=== PATIENT | female | born 1950 | race Caucasian/White ===

== ENCOUNTER 2022-07-01 15:05 | Emergency (ER) | payer OTHER, MEDICARE, BC ==
[~2022-07-01] VITALS: Ht 167.6 cm; Wt 79.4 kg
[~2022-07-01 15:05] MED LIST: ADULT LOW DOSE81 MG PO; ARNUITY ELLIP100 MCG IH; LEVOTHYROXINE88 MCG PO; RESTASIS1 DROP OD; VITAMIN D1000 UNIT PO
[2022-07-01] MEDS ORDERED: METOPROLOL SUCC50 MG PO (15:25)
[2022-07-01] MEDS ORDERED: HYDROCHLOROTH12.5 MG PO (15:25)
[2022-07-01] MEDS ORDERED: LISINOPRIL20 MG PO (15:25)
[2022-07-01] MEDS ORDERED: CLINDAMYCIN PHO30 M1 (15:26)
== END 2022-07-01 17:06 | disposition home or self-care (01) ==
LOC: ED 15:05
DX: S13.9XXA Sprain of joints and ligaments of unspecified parts of neck, initial encounter (principal); V49.50XA Passenger injured in collision with unspecified motor vehicles in traffic accident, initial encounter; I10 Essential (primary) hypertension; R73.03 Prediabetes; Z91.048 Other nonmedicinal substance allergy status; Z79.899 Other long term (current) drug therapy; Z79.82 Long term (current) use of aspirin
CPT/HCPCS: 70450; 72125

== ENCOUNTER 2025-01-14 12:21 | Emergency (ER) | payer OTHER, MEDICARE, BC ==
[~2025-01-14] VITALS: Ht 167.6 cm; Wt 79.0 kg
[~2025-01-14 12:21] MED LIST changes: +CLINDAMYCIN PHO30 M1; +HYDROCHLOROTH12.5 MG PO; +LISINOPRIL20 MG PO; +METOPROLOL SUCC50 MG PO
[2025-01-14] MEDS ORDERED: LEVOTHYROXINE100 MCG PO (12:39)
[2025-01-14] MEDS ORDERED: EZETIMIBE10 MG PO (12:40)
[2025-01-14] MEDS ORDERED: DULOXETINE HCL30 MG PO (12:40)
[2025-01-14] MEDS ORDERED: CICLOPIROX120 ML TOP (12:41)
[2025-01-14] MEDS ORDERED: MONTELUKAST SOD10 MG PO (12:43)
[2025-01-14 15:30] VITALS: BP 143/68
== END 2025-01-14 15:30 | disposition home or self-care (01) ==
LOC: ED 12:21
DX: M25.562 Pain in left knee (principal); I10 Essential (primary) hypertension; E78.00 Pure hypercholesterolemia, unspecified; Z86.73 Personal history of transient ischemic attack (TIA), and cerebral infarction without residual deficits; Z79.82 Long term (current) use of aspirin; Z79.899 Other long term (current) drug therapy; Z91.048 Other nonmedicinal substance allergy status
CPT/HCPCS: 73560; 73700; 99284-25

== ENCOUNTER 2025-04-18 08:00 | Day surgery (SDC) | payer MEDICARE, BC ==
[~2025-04-18] VITALS: Ht 167.6 cm; Wt 79.0 kg
[~2025-04-18 08:00] MED LIST changes: +CALCIUM 600+D1 EAC1 PO; +CEFAZOLIN SODIUM 2 GM/20 ML SYR IV SCH; +CEPHALEXIN500 MG PO; +CICLOPIROX120 ML TOP; +DULOXETINE HCL30 MG PO; +EZETIMIBE10 MG PO; +FISH OIL 1,001000 MG PO; +IBLOOD GLUCOSE TEST STRIP 1 EA TEST VI PRN; +KETOROLAC TROMETHAMINE 30 MG/ML VIAL ONE; +LACTATED RINGER'S 1,000 ML IV SCH; +LEVOTHYROXINE100 MCG PO; +LIDOCAINE HCL 1% 5 ML SDV INJ ONE; +MONTELUKAST SOD10 MG PO; +RESTASIS MULTI5.5 ML OP; -VITAMIN D1000 UNIT PO; +VITAMIN D3125 MC2 PO
[2025-04-18 08:19] VITALS: BP 133/66
[2025-04-18] MEDS ORDERED: KETOROLAC TROMETHAMINE 30 MG/ML VIAL ONE (10:02)
--- NOTE | 2025-04-18 10:41 | NUR ---
DR WESLEY HAS BEEN IN AND MARKED PT [employer]INCIPAL CONSULTING ENGINEER IN TO TALK WITH PT. PT HAS BEEN UPDATED DURING PREOP X 2 ON WAIT. WARM BLANKET ON.
[2025-04-18] MEDS ORDERED: LIDOCAINE HCL 2% 5 ML SDV ONE (10:43)
[2025-04-18] MEDS ORDERED: DEXAMETHASONE SOD PHOS 4 MG/ML VIAL ONE (10:43)
[2025-04-18] MEDS ORDERED: fentaNYL citrate 100 MCG/2 ML VIAL ONE (10:44)
[2025-04-18] MEDS ORDERED: HYDROCODONE/ACETA 5/325 TAB PO PRN (10:45)
[2025-04-18] MEDS ORDERED: HYDROCODON-ACE1 EA10 PO (11:22)
[2025-04-18] MEDS ORDERED: CELECOXIB200 MG PO (11:22)
--- NOTE | 2025-04-18 11:30 | NUR ---
04/18/25 1130 Beatriz Lopez 1119- PT PRESENTS TO PACU, SEMI HEAD POSITION, NON REACTIVE TO STIMULUS. BREATHING EVEN AND NON LABORED ON 6L O2 PER MASK WITH OPA IN PLACE. ABD SOFT, NON DISTENDED. LR INFUSING TO LAC IV. DRESSING TO LEFT KNEE, CDI, ICE PLACED. PULSES INTACT, ALL MONITORS IN PLACE.
[2025-04-18 12:04] VITALS: BP 114/91
--- NOTE | 2025-04-18 12:07 | NUR ---
RETURNED WATER GIVEN CALL LIGHT GIVEN S O AT BS.
[2025-04-18] MEDS ORDERED: fentaNYL citrate 50 MCG/ML SDV IV PRN (12:45)
[2025-04-18] MEDS ORDERED: HYDROmorphone HCL 1 MG/ML SYR IV PRN (12:45)
[2025-04-18] MEDS ORDERED: NALOXONE HCL 0.4 MG SYR IV PRN (12:45)
--- NOTE | 2025-04-18 12:55 | NUR ---
WARM BLANKETS ON HOT COCA REQUESTED AND GIVEN.
[2025-04-18 13:03] VITALS: BP 116/55
--- NOTE | 2025-04-18 14:49 | NUR ---
1350 DC INSTRUCTIONS REVIEWED AND COMPUTER PRINT OFFS REVIEWED NO QUESTIONS ENC PT TO RE READ AT HOME. DR WESLEY DC INSTRUCTIONS SHEET FROM OFFICE REVIEWED AND GIVEN ALSO. STATES SHE UNDERSTANDS AND NO QUESTIONS.
[2025-04-18] MEDS ORDERED: SEVOFLURANE 250 ML BTL INH ONE (16:55)
[2025-04-18] MEDS ORDERED: CELECOXIB 200 MG CAP PO SCH (17:00)
--- NOTE | 2025-04-19 10:34 | OR ---
[facility] [address], [place] [address] Signed DATE OF OPERATION: 04/18/2025 SURGEON: Emma Bui MD PREOPERATIVE DIAGNOSIS: Medial meniscus tear, left knee. POSTOPERATIVE DIAGNOSIS: Medial meniscus tear, left knee. PROCEDURE PERFORMED: Left knee arthroscopy with partial medial meniscectomy. WINDOW CUTTER: None. ANESTHESIA: General. BLOOD LOSS: Minimal. BRIEF HISTORY: Aleksandra is a 74-year-old female with pain and instability in her knee. She had undergone an MRI, which showed a medial meniscus tear. She had minimal degenerative changes. Risks and benefits of operative treatment were discussed with her and she elected to proceed. Once consent was obtained, she was taken to the operating room and placed on the operating room table. All downside pressure points were well padded. The right knee was flexed, abducted, and externally rotated on a well-padded leg hoover. The left was placed in well-padded leg hoover with no tourniquet. The leg was prepped and draped in a standard sterile fashion. Portal sites were injected with 0.25% Marcaine with epinephrine. The standard inferolateral and superolateral portals were made. The scope was introduced into the knee. ARTHROSCOPIC FINDINGS: The knee showed a moderate synovitis throughout. There was grade 1-2 chondromalacia changes in all three compartments. The patella tracked well. Medial and lateral gutters were clear. ACL and PCL were intact. Lateral meniscus was intact. Medial meniscus showed a complex tear posteriorly. DESCRIPTION OF OPERATION: Electronically Signed By: EMMA BUI MD 04/19/25 1034 PATIENT NAME: ALEKSANDRA NIELSEN OPERATIVE REPORT DATE OF : 46 REPORT #: [id number] PHYSICIAN: EMMA BUI MD PCP: KIKE BASSETT MD REPORT IS CONFIDENTIAL AND NOT TO BE RELEASED WITHOUT AUTHORIZATION [facility] [address], [place] [address] Signed Standard inferomedial portal was made after localization using a spinal needle. The straight biters were then used to trim the meniscus tear back to a stable rim. This was smoothed and feathered out using the shaver. All debris was evacuated. The scope was withdrawn. Portals were closed with 3-0 nylon and the knee was injected with 60 mg of Toradol. The wounds were then closed with 3-0 nylon and dressed with Adaptic, ABD, and Humberto wrap. She tolerated the procedure well. All sponge, needle, and instrument counts were correct. Emma Bui MD BA/SHONL /[id number] Copies: ~ Electronically Signed By: EMMA BUI MD 04/19/25 1034 PATIENT NAME: ALEKSANDRA NIELSEN OPERATIVE REPORT DATE OF : 46 REPORT #: [id number] PHYSICIAN: EMMA BUI MD PCP: KIKE BASSETT MD REPORT IS CONFIDENTIAL AND NOT TO BE RELEASED WITHOUT AUTHORIZATION
== END 2025-04-18 13:50 | disposition home or self-care (01) ==
LOC: DS 08:00
PROVIDERS: ATTEND Specialist
PROC: 0SJD4ZZ Inspection of Left Knee Joint, Percutaneous Endoscopic Approach (ICD-10-PCS; principal; 2025-04-18 10:25)
DX: S83.232A Complex tear of medial meniscus, current injury, left knee, initial encounter (principal); M94.262 Chondromalacia, left knee; M65.98 Unspecified synovitis and tenosynovitis, other site; I10 Essential (primary) hypertension; E78.00 Pure hypercholesterolemia, unspecified; E03.9 Hypothyroidism, unspecified; G47.30 Sleep apnea, unspecified; Z79.82 Long term (current) use of aspirin; Z79.890 Hormone replacement therapy; Z79.899 Other long term (current) drug therapy; Z88.8 Allergy status to other drugs, medicaments and biological substances; Z91.09 Other allergy status, other than to drugs and biological substances
CPT/HCPCS: 01400; J0690; J1100; J1885; J2003; J2405; J2704; J3010; J7121